=== PATIENT | male | born 1975 | race Caucasian/White ===

== ENCOUNTER 2023-09-08 09:42 | Day surgery (SDC) | payer OTHER ==
[2023-09-08] MEDS ORDERED: Sodium Bicarbonate 2.5 MEQ/5 ML SDV ONE (10:07)
[2023-09-08] MEDS ORDERED: Lidocaine 1% PF 5 ML VIAL ONE (10:07)
[2023-09-08 10:22] VITALS: TEMP 97
[2023-09-08 10:24] LABS: #Eosinphils 0.1 10x3/uL (0.0-0.5); #Monocytes 0.4 10x3/uL (0.0-1.1); #Neutrophils 4.1 10x3/uL (1.5-8.4); %Basophils 0.5 % (0.0-2.0); %Eosinophils 1.2 % (0.0-6.0); %Lymphocytes 17.4 % (18.0-47.0); %Monocytes 7.7 % (0.0-10.0); %Neutrophils 72.8 % (40.0-75.0); Hematocrit 29.6 % (38.8-50.0); Hemoglobin 10.4 g/dL (13.5-17.5); Mean Corpuscular HGB CONC 35.1 g/dL (32.0-36.0); Mean Corpuscular Hemoglobin 31.9 pg (27.0-33.0); Mean Corpuscular Volume 90.8 fl (81.2-95.1); Mean Platelet Volume 9.6 fl (7.4-10.4); Platelet Count 116 10x3/uL (150-450); RBC Distribution Width 14.5 % (11.5-14.5); Red Blood Cell (RBC) Count 3.26 10x6/uL (4.32-5.72); White Blood Cell (WBC) Count 5.6 10x3/uL (3.5-10.5)
[2023-09-08 10:36] LABS: INR-International Normal Ratio 1.1; Prothrombin Time 12.3 sec (9.5-12.1)
[2023-09-08 10:41] LABS: ALT (SGPT) 12 U/L (8-55); AST (SGOT) 30 U/L (5-34); Albumin 3.9 g/dL (3.5-5.0); Alkaline Phosphatase 126 U/L (40-110); Anion Gap 12 mmol/L (10-20); BUN (Urea Nitrogen) 21 mg/dL (8.9-20.6); Bilirubin, Total 1.1 mg/dL (0.2-1.2); Calc. Creatinine Clearance 56 mL/min (70-130); Calcium 9.3 mg/dL (7.8-10.44); Carbon Dioxide 21 mmol/L (22-29); Chloride 104 mmol/L (98-107); Estimated GFR 60; Globulin 3.8 g/dL (2.4-3.5); Glucose 100 mg/dL (70-105); Potassium 4.1 mmol/L (3.5-5.1); Protein, Total 7.7 g/dL (6.0-8.3); Sodium 133 mmol/L (136-145)
[2023-09-08 12:11] LABS: BF Color Yellow; Body Fluid Source Ascites Body Fluid; Tube # EDTA
[2023-09-08 12:12] LABS: Clarity Clear (Clear)
[2023-09-08 13:13] LABS: BF Segmented Neutrophils 15 %; Cell Count Non Hematic 35 %; Lymphocytes 50 %
== END 2023-09-08 10:53 | disposition home or self-care (01) ==
LOC: CSHULT 09:42
PROVIDERS: ATTEND Physician Assistant Medical
PROC: 0W9G3ZZ Drainage of Peritoneal Cavity, Percutaneous Approach (ICD-10-PCS; principal; 2023-09-08)
DX: K70.11 Alcoholic hepatitis with ascites (principal); I85.00 Esophageal varices without bleeding; K65.2 Spontaneous bacterial peritonitis
CPT/HCPCS: 49083; 80053; 84157; 85025; 85610; 87070; 87205; 89051